=== PATIENT | female | born 1975 | race African-American/Black ===

== ENCOUNTER → 2016-07-06 | Outpatient (CLI) | payer BC ==
[2016-07-06] VITALS (15 sets, daily range): BP systolic 123–143; BP diastolic 2–106
[~2016-07-06] VITALS: Ht 167.6 cm; Wt 99.8 kg
[~2016-07-06] MED LIST: BENICAR HCT 201 EACH PO; DYMISTA NASAL S23 GM NS; EXCEDRIN CAPLE1 EACH PO; FLONASE; IBUPROFEN 800800 MG PO; LORTAB 5 MG/5001 TA1 PO; NORCO 5-325 TA1 EACH PO; PATADAY2.5 ML OPHTHALMIC; PATANASE30.5 GM NASAL; PEPCID20 MG PO; TYLENOL325 MG PO; XYZAL5 MG PO; ZYRTEC10 M5 PO
--- NOTE | ~2016-07-06 | S ---
[facility] [place] [address] SURGICAL PATH RPT PROCEDURE Name: CARYL SALAZAR [id number] Admission: 07/06/16 Date of : 71 Discharge: Report #: [id number] Path Case #: [id number] PATHOLOGY REPORT COLLECTION DATE: 07/06/2016 RECEIVED DATE: 07/06/2016 SUBMITTING PHYS: Dr. Winston Renee OTHER PHYS: Dr. 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 - Approximately 60% of the tissue is non-neoplastic renal medulla and cortex. COMMENT: Co-review: Dr. Rachel Steele Findings of this case are telephoned to Ms. Patterson, Dr. Juan J Bueno's nurse at approximately 10:55 a.m. on 07/08/2016. PATHOLOGIST: Tiffany Mcdonough M.D. REPORT ELECTRONICALLY SIGNED BY: Tiffany Mcdonough M.D. DATE/TIME: 07/08/2016 16:35 * * * * * * * * * * * * GROSS PATHOLOGY: The specimen is received in formalin labeled "Dmitri Osei kidney". Received are multiple needle cores of pale villalta soft tissue measuring 1.1 x 0.5 x 0.1 cm in aggregate dimensions. The specimen is filtered and entirely submitted in cassette A1. (CAA; 07/07/2016) CLINICAL HISTORY: Left renal lesion INITIAL CPT CODE(S): A; 78574 Professional services performed by [facility] at [facility] [address], [place] [address] [facility] [address] [place] [address] SURGICAL PATH RPT PROCEDURE Name: CARYL SALAZAR Room #: REG SONIA Venegas#: [id number] Admission: 07/06/16 Date of : 71 Discharge: Report #: [id number] Path Case #: [id number] [facility] at [address] [place] [address], [place] [address]. [facility] [address] [place] [address] PHONE: [phone] DIRECTOR: Miguel Morin M.D. * * * END OF REPORT * * *
[2016-07-06 08:09] LABS: ABSOLUTE NEUTROPHILS 5.3 thou/uL (1.4-8.2); BASOPHILS 0.8 % (0.0-2.0); EOSINOPHILS 2.5 % (0.0-3.0); HEMOGLOBIN 13.2 gm/dL (12.0-15.0); LYMPHOCYTES 32.1 % (24.0-44.0); MCV 81.8 fL (80.0-100.0); MONOCYTES 5.5 % (1.0-8.0); PLATELET COUNT 157 thou/uL (150-400); POLYS 59.1 % (36.0-66.0); RBC 4.89 mil/uL (4.20-5.00); RDW 14.3 % (10.5-14.5)
[2016-07-06 08:10] LABS: MANUAL DIFF NO
[2016-07-06 08:17] LABS: CALCIUM 8.9 mg/dL (8.5-10.1); CREATININE 0.8 mg/dL (0.6-1.0)
[2016-07-06 08:21] LABS: PROTIME 10.8 Seconds (9.3-11.4)
== END | disposition home or self-care (01) ==
LOC: CAT 06:58
PROVIDERS: Urology
DX: C64.2 Malignant neoplasm of left kidney, except renal pelvis (principal); Z90.711 Acquired absence of uterus with remaining cervical stump; Z98.890 Other specified postprocedural states

== ENCOUNTER → 2020-01-29 | Outpatient (CLI) | payer BC | LOC: SJCVCIMAG 09:15 | PROVIDERS: ATTEND Internal Medicine | DX: I11.9 Hypertensive heart disease without heart failure (principal); R94.31 Abnormal electrocardiogram [ECG] [EKG]; E66.9 Obesity, unspecified ==

== ENCOUNTER → 2020-02-02 | Outpatient (CLI) | payer BC | LOC: RAD 09:40 | PROVIDERS: ATTEND Nurse Practitioner | DX: S49.91XA Unspecified injury of right shoulder and upper arm, initial encounter (principal); M79.621 Pain in right upper arm; X58.XXXA Exposure to other specified factors, initial encounter; Y93.89 Activity, other specified; Y92.89 Other specified places as the place of occurrence of the external cause; Y99.8 Other external cause status ==